=== PATIENT | female | born 1975 | race Two or more races ===

== ENCOUNTER 2017-03-16 13:13 | Emergency (ER) | payer MEDICAID, OTHER ==
[~2017-03-16] VITALS: Ht 157.5 cm; Wt 59.0 kg
[2017-03-16] MEDS ORDERED: HYDROcodone-ACET 10/325MG TAB PO ONE (15:15)
[2017-03-16 15:17] VITALS: BP 117/76
== END 2017-03-16 15:40 | disposition home or self-care (01) ==
LOC: ER 13:13
DX: L02.01 Cutaneous abscess of face (principal); Z88.6 Allergy status to analgesic agent; Z87.891 Personal history of nicotine dependence

== ENCOUNTER 2018-07-24 08:29 | Inpatient (IN) | payer OTHER ==
[~2018-07-24] VITALS: Ht 157.5 cm; Wt 58.3 kg
[2018-07-24] MEDS ORDERED: SODIUM CHLORIDE 0.9% 1,000 ML IVB ONE (08:56)
[2018-07-24] MEDS ORDERED: NALBUPHINE HCL 10 MG/1ml INJECTION IV ONE (09:00)
[2018-07-24] MEDS ORDERED: PROMETHAZINE HCL 25 MG/ML 1ML IV PRN (09:00)
[2018-07-24 10:34] LABS: Basophils # (auto) 0 uL; Basophils % (auto) 0.1 % (0.0-2.0); Eosinophils # (auto) 0 uL; Hematocrit 41.7 % (36.0-46.0); Hemoglobin 13.7 g/dL (12.2-16.2); Lymphocytes % (auto) 6.3 % (10.0-50.0); Mean Corpuscular Hemoglobin 29.9 pg (28.0-32.0); Mean Corpuscular Hgb Conc. 32.9 g/dL (32.0-36.0); Mean Corpuscular Volume 90.7 fL (80.0-100.0); Monocytes # (auto) 0.6 uL; Monocytes % (auto) 3.7 % (0.0-12.0); Neutrophils # (auto) 14.8 uL; Neutrophils % (auto) 89.9 % (37.0-80.0); Platelet Count (auto) 434 10^3/uL (140-450); Red Blood Cells 4.59 10^6/uL (4.0-5.20); Red Cell Distribution Width 13.2 % (11.8-14.3); White Blood Cell 16.5 10^3/uL (4.4-10.8)
[2018-07-24 10:51] LABS: Albumin 4.3 g/dL (3.4-5.0); Calcium 9.3 mg/dL (8.5-10.1); Potassium 3.4 mmol/L (3.5-5.1)
[2018-07-24 10:54] LABS: Bilirubin, Total 0.7 mg/dL (0.2-1.0); Total Protein 8.3 g/dL (6.4-8.2)
[2018-07-24 10:58] LABS: Urine Bacteria NONE SEEN /hpf (None Seen); Urine Blood 3+ /uL (Negative); Urine Mucus FEW (None Seen); Urine Specific Gravity 1.032 (1.001-1.035); Urine WBC 12 /hpf (0 - 5)
[2018-07-24 10:59] LABS: Magnesium 1.9 mg/dL (1.6-2.6)
[2018-07-24 11:06] LABS: BUN/Creatinine Ratio 18.2
[2018-07-24] MEDS ORDERED: cefTRIAXone 1GM/50ML D5W 50 ML IV ONE (15:30)
[2018-07-24] MEDS ORDERED: POTASSIUM EFFERVESENT TAB 25 MEQ PO ONE (15:30)
[2018-07-24] MEDS ORDERED: DEXTROSE (50%) 50ML SYRG IV PRN (15:45)
[2018-07-24] MEDS ORDERED: traMADol HCL 50 MG TAB PO PRN (15:45)
[2018-07-24] MEDS ORDERED: NITROGLYCERIN 0.4 MG SL TAB SL PRN (15:45)
[2018-07-24] MEDS ORDERED: TEMAZEPAM 15 MG CAP PO PRN (15:45)
[2018-07-24] MEDS ORDERED: ACETAMINOPHEN 500 MG TAB PO PRN (15:45)
[2018-07-24] MEDS ORDERED: ONDANSETRON HCL 4 MG/2 ML VIAL IV PRN (15:45)
[2018-07-24] MEDS ORDERED: MORPHINE SULFATE 4 MG/ML SYR/VIAL IV PRN ×2 (15:45)
[2018-07-24] MEDS ORDERED: LORazepam 0.5 MG TAB PO PRN (15:45)
[2018-07-24] MEDS: SODIUM CHLORIDE 0.9% 1,000 ML IV SCH ×2 (16:10→23:37)
[2018-07-24] MEDS: InsuLIN REG 1unit/0.01ml Soln (100units/ml) SC SCH ×2 (16:22→22:00)
[2018-07-24] MEDS: ACCU-CHEK COMFORT CURVE STRIP VI SCH ×2 (16:22→22:00)
[2018-07-24 17:40] VITALS: BP 121/81
[2018-07-24 18:32] VITALS: BP 121/81
[2018-07-24 22:00] VITALS: BP 108/65
[2018-07-25 05:00] VITALS: BP 90/43
[2018-07-25 06:21] LABS: Basophils # (auto) 0 uL; Basophils % (auto) 0.3 % (0.0-2.0); Eosinophils # (auto) 0 uL; Eosinophils % (auto) 0.1 % (0.0-7.0); Hematocrit 39.8 % (36.0-46.0); Hemoglobin 13.3 g/dL (12.2-16.2); Lymphocytes # (auto) 2.9 uL; Lymphocytes % (auto) 22.8 % (10.0-50.0); Mean Corpuscular Hemoglobin 31.1 pg (28.0-32.0); Mean Corpuscular Hgb Conc. 33.3 g/dL (32.0-36.0); Mean Corpuscular Volume 93.3 fL (80.0-100.0); Monocytes # (auto) 0.7 uL; Monocytes % (auto) 5.5 % (0.0-12.0); Neutrophils % (auto) 71.3 % (37.0-80.0); Platelet Count (auto) 342 10^3/uL (140-450); Red Blood Cells 4.27 10^6/uL (4.0-5.20); Red Cell Distribution Width 13.2 % (11.8-14.3); White Blood Cell 12.7 10^3/uL (4.4-10.8)
[2018-07-25] MEDS: ACCU-CHEK COMFORT CURVE STRIP VI SCH ×3 (06:48→17:26)
[2018-07-25] MEDS: InsuLIN REG 1unit/0.01ml Soln (100units/ml) SC SCH ×3 (06:48→17:00)
[2018-07-25 08:49] VITALS: BP 105/58
[2018-07-25] MEDS ORDERED: cefTRIAXone 1GM/50ML D5W 50 ML IV SCH (09:00)
[2018-07-25] MEDS: PANTOPRAZOLE 40 MG TAB PO SCH (09:21)
[2018-07-25] MEDS: ENOXAPARIN SOD 40 MG/0.4 ML SYRINGE SC SCH (09:22)
[2018-07-25] MEDS: SODIUM CHLORIDE 0.9% 1,000 ML IV SCH ×3 (09:22→23:37)
[2018-07-25 13:07] VITALS: BP 110/64
[2018-07-25] MEDS ORDERED: KETOROLAC TROMETH 30 MG/ML 1ML VIAL IV ONE ×2 (15:15→15:30)
[2018-07-25 17:02] VITALS: BP 104/65
[2018-07-25] MEDS ORDERED: KETOROLAC TROMETH 30 MG/ML 1ML VIAL IV PRN (18:00)
[2018-07-25 22:00] VITALS: BP 136/79
[2018-07-26 05:18] VITALS: BP 115/65
[2018-07-26] MEDS: KETOROLAC TROMETH 30 MG/ML 1ML VIAL IV PRN ×2 (05:53→11:53)
[2018-07-26] MEDS: SODIUM CHLORIDE 0.9% 1,000 ML IV SCH ×2 (07:40→11:53)
[2018-07-26 08:40] VITALS: BP 120/71
[2018-07-26] MEDS: ENOXAPARIN SOD 40 MG/0.4 ML SYRINGE SC SCH (10:00)
[2018-07-26] MEDS: PANTOPRAZOLE 40 MG TAB PO SCH (10:20)
[2018-07-26] MEDS ORDERED: CHOLECALCIFEROL (VITD3) 1,000 UNIT TAB PO ONE (11:00)
[2018-07-26] MEDS ORDERED: MANNITOL FTV 25% 12.5 GM/50 ML 50 ML IV ONE (12:00)
[2018-07-26 12:59] VITALS: BP 111/68
[2018-07-26] MEDS ORDERED: PANT40T PO (16:24)
[2018-07-26] MEDS ORDERED: CHOL1000T PO (16:24)
[2018-07-26] MEDS ORDERED: TAM04C PO (16:24)
[2018-07-26 17:03] VITALS: BP 120/69
[2018-07-26] MEDS ORDERED: TAMSULOSIN HYDROCHLORIDE 0.4 MG CAP PO SCH (18:00)
[2018-07-26 18:11] VITALS: BP 120/69
[2018-07-27] MEDS ORDERED: CHOLECALCIFEROL (VITD3) 1,000 UNIT TAB PO SCH (10:00)
== END 2018-07-26 18:35 | disposition home or self-care (01) | DRG 463 ==
LOC: ER 08:29 → TELE 15:37 → TELE-WESTW 17:05 → WEST WING 07-25 22:00
PROVIDERS: ADMIT Internal Medicine; ATTEND Internal Medicine
DX: N13.6 Pyonephrosis (principal); D25.9 Leiomyoma of uterus, unspecified; E16.2 Hypoglycemia, unspecified; E87.6 Hypokalemia; Z79.899 Other long term (current) drug therapy; Z87.891 Personal history of nicotine dependence; F41.9 Anxiety disorder, unspecified
CPT/HCPCS: 36415; 71046; 74176; 76775; 76856; 80053; 81001; 81025; 82962; 83036; 83690; 83735; 84702; 85025; 87040; 87086; 94761; 96361; 96365; 96375; G0378; J0696; J1885; J2405

== ENCOUNTER 2018-11-01 12:33 | Emergency (ER) | payer OTHER ==
[~2018-11-01] VITALS: Ht 160 cm; Wt 56.7 kg
[~2018-11-01 12:33] MED LIST: CHOL1000T PO; PANT40T PO; TAM04C PO
[2018-11-01 13:52] VITALS: BP 129/80
[2018-11-01] MEDS ORDERED: HYDROcodone-ACET 5/325MG TAB PO ONE (15:00)
== END 2018-11-01 16:48 | disposition home or self-care (01) ==
LOC: ER 12:47
DX: S92.512A Displaced fracture of proximal phalanx of left lesser toe(s), initial encounter for closed fracture (principal); F31.9 Bipolar disorder, unspecified; Z87.891 Personal history of nicotine dependence; Z88.8 Allergy status to other drugs, medicaments and biological substances; W22.8XXA Striking against or struck by other objects, initial encounter; Y93.01 Activity, walking, marching and hiking; Y92.89 Other specified places as the place of occurrence of the external cause; Y99.8 Other external cause status
CPT/HCPCS: 73660

== ENCOUNTER 2019-10-28 15:04 | Emergency (ER) | payer MEDICAID, OTHER ==
[~2019-10-28] VITALS: Ht 157.5 cm; Wt 62.6 kg
[~2019-10-28 15:04] MED LIST changes: -CHOL1000T PO; +[UNRECOGNIZED DRUG - CODE] PO
[2019-10-28 15:29] VITALS: BP 128/85
[2019-10-28 15:59] LABS: Urine WBC None Seen /hpf (0 - 5)
[2019-10-28 16:25] LABS: Basophils # (auto) 0.1 uL; Basophils % (auto) 0.7 % (0.0-2.0); Eosinophils # (auto) 0.1 uL; Eosinophils % (auto) 1.3 % (0.0-7.0); Hematocrit 40.8 % (36.0-46.0); Hemoglobin 13.5 g/dL (12.2-16.2); Lymphocytes # (auto) 2.7 uL; Lymphocytes % (auto) 30.6 % (10.0-50.0); Mean Corpuscular Hemoglobin 30.9 pg (28.0-32.0); Mean Corpuscular Hgb Conc. 33.1 g/dL (32.0-36.0); Mean Corpuscular Volume 93.4 fL (80.0-100.0); Monocytes # (auto) 0.7 uL; Monocytes % (auto) 7.7 % (0.0-12.0); Neutrophils # (auto) 5.2 uL; Neutrophils % (auto) 59.7 % (37.0-80.0); Nucleated Red Blood Cells % 0.1 %; Platelet Count (auto) 358 10^3/uL (140-450); Red Blood Cells 4.36 10^6/uL (4.0-5.20); White Blood Cell 8.8 10^3/uL (4.4-10.8)
[2019-10-28 16:29] LABS: Albumin 3.9 g/dL (3.4-5.0); BUN/Creatinine Ratio 14.3; Calcium 8.7 mg/dL (8.5-10.1); Potassium 3.9 mmol/L (3.5-5.1)
[2019-10-28 16:36] LABS: Bilirubin, Total 0.2 mg/dL (0.2-1.0); Total Protein 7.3 g/dL (6.4-8.2)
[2019-10-28 16:45] LABS: Urine Bacteria NONE SEEN /hpf (None Seen); Urine Blood 1+ /uL (Negative); Urine Mucus FEW (None Seen)
== END 2019-10-28 19:43 | disposition left against medical advice (07) ==
LOC: ER 15:04
DX: R10.2 Pelvic and perineal pain (principal); Z53.21 Procedure and treatment not carried out due to patient leaving prior to being seen by health care provider
CPT/HCPCS: 36415; 80053; 81001; 85025